=== PATIENT | female | born 1970 | race Caucasian/White ===

== ENCOUNTER → 2018-06-06 | Outpatient (CLI) | payer OTHER | LOC: CAT 17:18 | DX: S00.03XA Contusion of scalp, initial encounter (principal); J32.3 Chronic sphenoidal sinusitis; X58.XXXA Exposure to other specified factors, initial encounter; Y93.89 Activity, other specified; Y92.89 Other specified places as the place of occurrence of the external cause; Y99.8 Other external cause status ==

== ENCOUNTER 2019-10-27 15:44 | Emergency (ER) | payer OTHER ==
[~2019-10-27] VITALS: Ht 167.6 cm; Wt 147.4 kg
[2019-10-27 16:06] LABS: ABSOLUTE NEUTROPHILS 7.8 thou/uL (1.4-8.2); BASOPHILS 0.6 % (0.0-2.0); EOSINOPHILS 2.8 % (0.0-3.0); HEMOGLOBIN 17.3 gm/dL (12.0-15.0); LYMPHOCYTES 20.7 % (24.0-44.0); MCH 32.7 pg (26.0-34.0); MCHC 33.3 g/dL (28.0-37.0); PLATELET COUNT 267 thou/uL (150-400); POLYS 70.9 % (36.0-66.0)
[2019-10-27 16:13] LABS: ANION GAP 10 mmol/L (7-16); BUN 15 mg/dL (7-18); CHLORIDE 102 mmol/L (98-107); CO2 25 mmol/L (21-32); GLUCOSE 153 mg/dL (74-106); POTASSIUM 4.4 mmol/L (3.5-5.1); SODIUM 137 mmol/L (136-145)
[2019-10-27 16:23] LABS: ALBUMIN 3.9 g/dL (3.4-5.0); SGOT 18 U/L (15-37); SGPT 31 U/L (30-65); TOTAL BILIRUBIN 0.4 mg/dL (0.2-1.0); TOTAL PROTEIN 8.1 g/dL (6.4-8.2); TROPONIN-I <0.06 ng/mL (<0.06)
[2019-10-27] MEDS ORDERED: CLONAZEPAM 0.50.5 M1 PO (16:56)
[2019-10-27] MEDS ORDERED: REQUIP 1 MG TABL1 M1 PO (16:57)
[2019-10-27] MEDS ORDERED: DESYREL150 MG PO (16:57)
[2019-10-27] MEDS ORDERED: CYMBALTA30 MG PO (16:58)
[2019-10-27] MEDS ORDERED: GLIPIZIDE ER2.5 MG PO (16:59)
[2019-10-27] MEDS ORDERED: TOPAMAX100 MG PO (17:00)
[2019-10-27] MEDS ORDERED: DOXYCYCLINE 10100 MG PO (20:39)
[2019-10-27 21:04] VITALS: BP 144/83
--- NOTE | 2019-10-28 07:58 | EKG ---
[facility] [place] [address] ELECTROCARDIOGRAM REPORT Name: ORQUIDEA PUENTE Room #: [facility]#: [id number] Admission: 10/27/19 Attend Phys: Discharge: 10/27/19 Date of : 74 Report #: [id number] THIS REPORT FOR: cc: KATELNY - Kay family physician/PCP KATELYN - Kay family physician/PCP Yunier Rodriguez MD [facility] THIS REPORT FOR: //name// [facility] ED Test Date: 2019-10-27 Test Time: 16:10:39 Pat Name: ORQUIDEA PUENTE Department: Room: Gender: F Rigging [place]: [facility] : 1970 Requested By: Katiana Beauchamp Order Number: [id number] MD: Yunier Rodriguez Measurements Intervals [place] Rate: 81 P: 31 ND: 159 QRS: -60 QRSD: 104 T: 27 QT: 402 QTc: 467 Interpretive Statements Sinus rhythm Incomplete RBBB and LAFB Low voltage, precordial leads No previous ECG available for comparison Electronically Signed On 10-28-2019 7:58:31 CDT by Yunier Rodriguez [email or web address] <ELECTRONICALLY SIGNED> By: Yunier Rodriguez MD, FACC 10/28/19 [id number] Yunier Rodriguez MD, [facility] /EPI
== END 2019-10-27 21:05 | disposition home or self-care (01) ==
LOC: ER 15:44
PROVIDERS: Physician Assistant
DX: J18.9 Pneumonia, unspecified organism (principal); R55 Syncope and collapse; Z20.828 Contact with and (suspected) exposure to other viral communicable diseases; F41.9 Anxiety disorder, unspecified; Z90.711 Acquired absence of uterus with remaining cervical stump; Z79.899 Other long term (current) drug therapy; Z88.1 Allergy status to other antibiotic agents; Z88.5 Allergy status to narcotic agent; Z88.8 Allergy status to other drugs, medicaments and biological substances

== ENCOUNTER 2021-05-28 10:11 | Emergency (ER) | payer OTHER ==
[~2021-05-28] VITALS: Ht 167.6 cm; Wt 132.0 kg
--- NOTE | ~2021-05-28 | EMS ---
[address] [address] EMS Patient Care Report Name: ORQUIDEA PUENTE Room #: PRE M.R.#: [id number] Admission: Attend Phys: Discharge: Date of : 74 Report #: [id number] THIS REPORT FOR: //name// Report Transmitted: 05/28/2021 10:02 EMS Care Summary [place], [place]/[facility] Incident [id number] @ 05/28/2021 09:36 Incident Location [address] [place] [address] Patient ORQUIDEA PUENTE Female, 51 Years 1970 Patient Address Patient History Diabetes,Hysterectomy,Gallbladder Disease, Patient Allergies Morphine, Patient Medications Ropinirole, Trazodone, Chief Complaint ABDOMINAL PAIN Disposition Transported No Lights/[place] Dispatch Reason Abdominal Pain/Problems Transported To [facility] Narrative MEDIC 38 DISPATCHED TO AN ABDOMINAL PAIN. UPON ARRIVAL ON SCENE WE WERE LED TO THE PATIENT BY STAFF WHO WAS FOUND SEATED IN A CHAIR IN THE HALLWAY APPEARING IF SHE WAS IN PAIN. THE PATIENT STATED SHE WAS HAVING ABDOMINAL PAIN THAT HAD BEEN GOING ON SINCE LAST SATURDAY. THE PATIENT STATED SHE HAS A HISTORY OF GALLBLADDER COMPLICATIONS AND SHE KNOWS SHE'S NEEDED TO GO TO THE HOSPITAL. THE PATIENT CONSENTED TO ALL VITALS AND ASSESSMENT AND TRANSPORT TO [facility]. THE PATIENT WAS ABLE TO STAND UP AND TRANSFER HERSELF TO OUR [address] [address] EMS Patient Care Report Name: ORQUIDEA PUENTE Room #: [facility]#: [id number] Admission: Attend Phys: Discharge: Date of : 74 Report #: [id number] STRETCHER WITHOUT INCIDENT. SHE WAS SECURED TO THE STRETCHER AND WHEELED TO THE AMBULANCE WITHOUT INCIDENT. THE PATIENT DESCRIBED THE PAIN SHARP AND STABBING AND POINTED TO HER RUQ TO WHERE IT STARTS. THE PATIENT STATED SHE WAS HAS BEEN NAUSEAOUS SINCE YESTERDAY AND THREW UP MULITPLE TIMES YESTERDAY AND ONCE THIS MORNING. THE PATIENT REFUSED AN IV SO ORAL ZOFRAN WAS GIVEN. NO CHANGE IN PATIENT CONDITION WAS SEEN DURING TRANSPORT. UPON ARRIVAL TO THE [facility] THE PATIENT WAS WHEELED INTO THE ED WIHTOUT INCIDENT AND CARE WAS TRANSFERRED TO THE ED NURSE. Initial Vitals @09:53P: 79,R: 18,BP: 147/83,Pain: 8/10,GCS: 15,SpO2: 95,Revised Trauma: 12, @10:00P: 81,R: 18,BP: 138/78,Pain: 8/10,GCS: 15,CO: 6,SpO2: 96,Revised Trauma: 12, Assessments @09:51MENTAL:Place Oriented,Person Oriented,Time Oriented,Event Oriented,SKIN:HEENT:Head/Face: No Abnormalities,Neck/Airway: No Abnormalities,LUNG SOUNDS:Right Upper: Other,General: Nausea,ABDOMEN:Right Upper: Other,General: Nausea,PELVIS//GI:EXTREMITIES:Capillary Refill: Left Upper: < 2 Sec,Capillary Refill: Right Upper: < 2 Sec,Left Arm: No Abnormalities,Right Arm: No Abnormalities,PULSE:Radial: 2+ Normal,NEURO:@10:04MENTAL:Person Oriented,Place Oriented,Time Oriented,Event Oriented,SKIN:HEENT:Head/Face: No Abnormalities,LUNG SOUNDS:General: Nausea,Right Upper: Other,ABDOMEN:General: Nausea,Right Upper: Other,PELVIS//GI:EXTREMITIES:Capillary Refill: Left Upper: < 2 Sec,Capillary Refill: Right Upper: < 2 Sec,Left Arm: No Abnormalities,Right Arm: No Abnormalities,PULSE:Radial: 2+ Normal,NEURO: Impression Abdominal Pain Procedures @09:53 Zofran - 4 Milligrams (mg) - Oral Response: Unchanged @09:45 ALS Assessment Response: UnchangedSucceeded @09:51 3-Lead ECG Response: UnchangedSucceeded @09:49 Stretcher Response: Unchanged Timeline 09:34,Call Received 09:34,Dispatch Notified 09:36,Dispatched 09:36,En Route 09:43,On Scene 09:45,At Patient 09:45,ALS Assessment,Response: UnchangedSucceeded, [address] [address] EMS Patient Care Report Name: KWAMEORQUIDEA Pleitez Room #: [facility] M.R.#: [id number] Admission: Attend Phys: Discharge: Date of : 74 Report #: [id number] 09:49,Stretcher,Response: Unchanged 09:51,3-Lead ECG,Response: UnchangedSucceeded, 09:53,Zofran - 4 Milligrams (mg) - Oral,Response: Unchanged 09:53,BP: 147/83 M,PULSE: 79,RR: 18 R,SPO2: 95 Ox,ETCO2: ,BG: ,PAIN: 8,GCS: 15, 09:55,Depart Scene 10:00,BP: 138/78 M,PULSE: 81,RR: 18 R,SPO2: 96 Ox,ETCO2: ,BG: ,PAIN: 8,GCS: 15, 10:04,At Destination 10:23,Call Closed Disclaimer v1.1 Copyright 2021 [employer] This EMS Care Summary contains data elements from the applicable legal record (which may be displayed differently). It is designed to provide pertinent information for the following purposes: continuity of care, clinical quality, and state data reporting. The complete legal record is available to ED staff and administrators of the receiving hospital in [employer] Patient Tracker. All data is provided "as is."
[~2021-05-28 10:11] MED LIST: CLONAZEPAM 0.50.5 M1 PO; CYMBALTA30 MG PO; DESYREL150 MG PO; DOXYCYCLINE 10100 MG PO; GLIPIZIDE ER2.5 MG PO; REQUIP 1 MG TABL1 M1 PO; TOPAMAX100 MG PO
[2021-05-28 10:50] LABS: ABSOLUTE NEUTROPHILS 3.4 thou/uL (1.4-8.2); BASOPHILS 0.8 % (0.0-2.0); EOSINOPHILS 2.7 % (0.0-3.0); HEMATOCRIT 45.3 % (37.0-47.0); HEMOGLOBIN 15.6 gm/dL (12.0-15.0); MCH 32.3 pg (26.0-34.0); MCHC 34.5 g/dL (28.0-37.0); MCV 93.6 fL (80.0-100.0); MONOCYTES 6.2 % (1.0-8.0); PLATELET COUNT 311 thou/uL (150-400); POLYS 54.3 % (36.0-66.0); RBC 4.84 mil/uL (4.20-5.00); RDW 13.3 % (10.5-14.5); WBC 6.3 thou/uL (4.0-11.0)
[2021-05-28 11:00] LABS: CALCIUM 9.5 mg/dL (8.5-10.1); POTASSIUM 4.1 mmol/L (3.5-5.1)
[2021-05-28 11:06] LABS: ALBUMIN 3.9 g/dL (3.4-5.0); TOTAL BILIRUBIN 0.5 mg/dL (0.2-1.0); TOTAL PROTEIN 7.8 g/dL (6.4-8.2)
[2021-05-28] MEDS ORDERED: PRILOSEC OTC20 MG PO (11:32)
[2021-05-28] MEDS ORDERED: NAPROSYN500 MG PO (11:32)
[2021-05-28 12:05] VITALS: BP 149/97
== END 2021-05-28 12:23 | disposition home or self-care (01) ==
LOC: ER 10:11
PROVIDERS: Emergency Medicine
DX: R10.13 Epigastric pain (principal); F41.9 Anxiety disorder, unspecified; Z90.710 Acquired absence of both cervix and uterus; Z79.899 Other long term (current) drug therapy; Z88.1 Allergy status to other antibiotic agents; Z88.5 Allergy status to narcotic agent; Z88.8 Allergy status to other drugs, medicaments and biological substances